=== PATIENT | male | born 1970 ===

== ENCOUNTER 2021-03-08 19:25 | Emergency (ER) | payer OTHER ==
[2021-03-08] MEDS ORDERED: Aspirin 81 MG Tab.Chew PO ONE (19:39)
--- NOTE | 2021-03-08 19:41 | EDM.PDOC ---
ED HPI GENERAL MEDICAL PROBLEM - General Chief Complaint: Chest Pain Stated Complaint: CHEST PAIN Time Seen by Provider: 03/08/21 19:38 Source of Information: Reports: Patient, Family, RN Notes Reviewed History Limitations: Reports: No Limitations - History of Present Illness INITIAL COMMENTS - FREE TEXT/NARRATIVE: 50-year-old gentleman presents emergency department a complaint of chest pain, he states the chest pain started 1 hour prior he did feel sweaty and clammy no nausea vomiting no shortness of breath, he does have a known history of coronary artery disease stenting x3 back in 2019 at which time his catheterization was done. Chest Pain Score (Numeric/FACES): 5 - Related Data Allergies Allergy/AdvReac Type Severity Reaction Status Date / Time oxycodone [From OxyContin] Allergy Vomiting Verified 03/08/21 19:41 Home Meds: Home Meds Aspirin [Shantelle Chewable Aspirin] 1 tab PO DAILY 03/08/21 [History] Levothyroxine 1 tab PO DAILY 03/08/21 [History] Losartan Potassium 1 tab PO DAILY 03/08/21 [History] Meloxicam 1 tab PO DAILY 03/08/21 [History] Metaxalone [Skelaxin] 1 tab PO Q8H PRN 03/08/21 [History] Metoprolol Tartrate 0.5 tab PO BID 03/08/21 [History] Nitroglycerin [Nitrostat] 1 tab SL ASDIRECTED PRN 03/08/21 [History] Psyllium Husk/Calcium Carb [Metamucil Plus Calcium Capsule] 1 cap PO DAILY 03/08/21 [History] Rosuvastatin [Crestor] 1 tab PO DAILY 03/08/21 [History] icosapent ethyL [Vascepa] 2 cap PO BID 03/08/21 [History] Past Medical History Cardiovascular History: Reports: CAD, High Cholesterol, Hypertension Social & Family History - Tobacco Use Tobacco Use Status *Q: Former Tobacco User ED ROS GENERAL - Review of Systems Review Of Systems: See Below Constitutional: Reports: Diaphoresis HEENT: Reports: No Symptoms Respiratory: Reports: No Symptoms Cardiovascular: Reports: Chest Pain GI/Abdominal: Reports: No Symptoms ED EXAM, GENERAL - Physical Exam Exam: See Below Exam Limited By: No Limitations General Appearance: Alert, WD/WN, No Apparent Distress Respiratory/Chest: No Respiratory Distress, Lungs Clear, Normal Breath Sounds, No Accessory Muscle Use, Chest Non-Tender Cardiovascular: Regular Rate, Rhythm, No Murmur GI/Abdominal: Soft, Non-Tender #1 Interpretation EKG Date: 03/08/21 Time: 19:41 Rhythm: NSR [place]: Normal P-Wave: Present QRS: Normal ST-T: Normal QT: Normal Comparison: NA - No Prior EKG EKG Interpretation Comments: old Q wave in III Course - Vital Signs Last Recorded V/S: Last Vital Signs Temp 97.4 F 03/08/21 19:48 Pulse 68 03/08/21 22:23 Resp 18 03/08/21 21:25 BP 124/77 03/08/21 22:23 Pulse Ox 98 03/08/21 19:57 - Orders/Labs/Meds Orders: Active Orders 24 hr Category Date Time Status Cardiac Monitoring [RC] .As Directed Care 03/08/21 19:39 Active EKG Documentation Completion [RC] ASDIRECTED Care 03/08/21 19:39 Active Chest 1V Frontal [CR] Stat Exams 03/08/21 19:39 Taken EKG 12 Lead [EK] Stat Ther 03/08/21 19:39 Ordered Labs: Laboratory Tests 03/08/21 03/08/21 03/08/21 Range/Units 19:48 19:48 22:19 WBC 6.0 (4.5-11.0) K/uL RBC 4.61 (4.30-5.90) M/uL Hgb 14.2 (12.0-15.0) g/dL Hct 42.9 (40.0-54.0) % MCV 93 (80-98) fL MCH 31 (27-31) pg MCHC 33 (32-36) % Plt Count 218 (150-400) K/uL Neut % (Auto) 51.7 (36-66) % Lymph % (Auto) 37.8 (24-44) % [place] % (Auto) 8.3 H (2-6) % Eos % (Auto) 1.5 L (2-4) % Baso % (Auto) 0.7 (0-1) % Sodium 141 (140-148) mmol/L Potassium 3.9 (3.6-5.2) mmol/L Chloride 103 (100-108) mmol/L Carbon Dioxide 24 (21-32) mmol/L Anion Gap 14.3 H (5.0-14.0) mmol/L BUN 18 (7-18) mg/dL Creatinine 0.9 (0.8-1.3) mg/dL Est Cr Clr Drug Dosing TNP Estimated GFR (MDRD) > 60 (>60) Glucose 139 H (74-106) mg/dL Calcium 8.8 (8.5-10.1) mg/dL Total Bilirubin 0.3 (0.2-1.0) mg/dL AST 30 (15-37) U/L ALT 52 (12-78) U/L Alkaline Phosphatase 93 (46-116) U/L Troponin I < 0.017 < 0.017 (0.000-0.056) ng/mL Total Protein 7.3 (6.4-8.2) g/dL Albumin 3.8 (3.4-5.0) g/dL Globulin 3.5 (2.3-3.5) g/dL Albumin/Globulin Ratio 1.1 L (1.2-2.2) Meds: Medications Discontinued Medications Generic Name Dose Route Start Last Admin Trade Name Freq PRN Reason Stop Dose Admin Aspirin 324 mg 03/08/21 19:39 03/08/21 19:52 Aspirin 81 Mg Tab.Chew PO 03/08/21 19:40 324 mg ONETIME ONE Administration Departure - Departure Time of Disposition: 22:48 Disposition: Home, Self-Care 01 Condition: Fair Clinical Impression: Atypical chest pain Instructions: Nonspecific Chest Pain, Adult Referrals: PCP,None [Primary Care Provider] - Forms: ED Department Discharge Additional Instructions: Continue with your regular medications please keep your follow-up appointment with your gear straightener upon return home call return to the emergency department worsening of symptoms, Sepsis Event Note (ED) - Focused Exam Vital Signs: Vital Signs Temp Pulse Resp BP Pulse Ox 03/08/21 22:23 68 124/77 03/08/21 21:25 84 18 138/86 03/08/21 19:57 82 14 131/85 98 03/08/21 19:48 97.4 F 86 17 148/83 H 98 03/08/21 19:30 97.4 F 86 17 148/83 H 98 - My Orders Last 24 Hours: My Active Orders 03/08/21 19:39 Cardiac Monitoring [RC] .As Directed EKG Documentation Completion [RC] ASDIRECTED Chest 1V Frontal [CR] Stat EKG 12 Lead [EK] Stat - Assessment/Plan Last 24 Hours: My Active Orders 03/08/21 19:39 Cardiac Monitoring [RC] .As Directed EKG Documentation Completion [RC] ASDIRECTED Chest 1V Frontal [CR] Stat EKG 12 Lead [EK] Stat Plan: Assessment Acuity = acute Site and laterality = atypical chest pain Etiology = unknown Manifestations = none Location of injury = Home Lab values = CBC, CMP unremarkable troponin was negative x2 EKG demonstrates sinus rhythm there is no ST elevation or depression chest x-ray I did review films myself I cannot appreciate any acute process, the official read from radiology is pending Plan I did review lab work with him as well as EKG and chest x-ray results he is going to follow-up with his gear straightener upon return home This note was dictated using [employer] voice recognition software please call with any questions on syntax or grammar.
--- NOTE | 2021-03-10 10:45 | CR ---
CHEST: Portable 03/08/2021 at 7:58 PM CLINICAL HISTORY:Chest pain COMPARISON:None FINDINGS: The heart size, pulmonary vascularity and hilar structures are normal. No infiltrate effusion or pneumothorax is seen. IMPRESSION: No acute cardiopulmonary process.
== END 2021-03-08 22:56 | disposition home or self-care (01) ==
LOC: JP.ED 19:25
DX: R07.89 Other chest pain (principal); R61 Generalized hyperhidrosis; I25.10 Atherosclerotic heart disease of native coronary artery without angina pectoris; E78.00 Pure hypercholesterolemia, unspecified; I10 Essential (primary) hypertension; Z87.891 Personal history of nicotine dependence; Z95.5 Presence of coronary angioplasty implant and graft; Z88.5 Allergy status to narcotic agent; Z79.82 Long term (current) use of aspirin; Z79.899 Other long term (current) drug therapy
CPT/HCPCS: 36415; 71045; 80053; 84484; 85025; 93005; 99285; A9270